=== PATIENT | female | born 1995 ===

== ENCOUNTER 2020-07-06 07:22 | Emergency (ER) | payer BC | END 2020-07-06 08:09 | disposition home or self-care (01) | LOC: ERS 07:22 | DX: M62.838 Other muscle spasm (principal); E55.9 Vitamin D deficiency, unspecified; F41.9 Anxiety disorder, unspecified; F32.9 Major depressive disorder, single episode, unspecified; Z79.899 Other long term (current) drug therapy | CPT/HCPCS: 99283 ==

== ENCOUNTER 2021-07-19 08:54 | Emergency (ER) | payer BC ==
[2021-07-19] MEDS ORDERED: Dexamethasone 10 MG/ML VIAL ONE (10:20)
== END 2021-07-19 10:30 | disposition home or self-care (01) ==
LOC: ERS 08:54
DX: J20.9 Acute bronchitis, unspecified (principal); Z79.899 Other long term (current) drug therapy
CPT/HCPCS: 71045; J1100

== ENCOUNTER 2022-09-22 09:00 | Emergency (ER) | payer BC | END 2022-09-22 09:47 | disposition home or self-care (01) | LOC: ERS 09:00 | DX: J20.9 Acute bronchitis, unspecified (principal); Z20.822 Contact with and (suspected) exposure to COVID-19 | CPT/HCPCS: 99283 ==